=== PATIENT | female | born 1955 | race African-American/Black ===

== ENCOUNTER 2022-11-10 09:30 | Emergency (ER) | payer MEDICARE, OTHER ==
[~2022-11-10] VITALS: Ht 160 cm; Wt 69.0 kg
[2022-11-10 09:39] VITALS: TEMP 98.9
[2022-11-10] MEDS ORDERED: ALBUTEROL (0.083%) 2.5MG/3ML NEB HHN STA (10:32)
[2022-11-10] MEDS ORDERED: PREDNISONE 20MG TABLET PO STA (10:32)
[2022-11-10] MEDS ORDERED: IPRATROPIUM BROMIDE (0.02%) 0.5MG/2.5ML NEB HHN STA (10:32)
[2022-11-10] MEDS ORDERED: AMLODIPINE 10MG TABLET PO ONE (10:45)
[2022-11-10 11:00] VITALS: PULSE 60; RESP 20; O2SAT 95
[2022-11-10] MEDS ORDERED: ALBU05 NEB (12:51)
[2022-11-10] MEDS ORDERED: P20 MT (12:51)
[2022-11-10] MEDS ORDERED: ALBU6.7H3 INH (12:51)
[2022-11-10 13:18] VITALS: BP 184/79; PULSE 69; RESP 16
== END 2022-11-10 13:20 | disposition home or self-care (01) ==
LOC: ER 09:30
DX: J44.1 Chronic obstructive pulmonary disease with (acute) exacerbation (principal); I10 Essential (primary) hypertension; Z98.890 Other specified postprocedural states
CPT/HCPCS: 99285; 71045; 94644; J7512

== ENCOUNTER 2023-03-28 14:10 | Emergency (ER) | payer MEDICARE ==
[~2023-03-28] VITALS: Ht 165.1 cm; Wt 72.0 kg
[~2023-03-28 14:10] MED LIST: ALBU05 NEB; ALBU6.7H3 INH; P20 MT
[2023-03-28 14:29] VITALS: O2SAT 98
[2023-03-28 15:22] LABS: BASOPHILS % 0.7 % (0.0-2.0); EOSINOPHILS % 1.8 % (0.0-5.0); HEMATOCRIT. 40.9 % (36.0-48.0); HEMOGLOBIN. 13.6 g/dL (12.0-16.0); MEAN CORPUSCULAR HEMOGLOBIN 32.5 pg (28.0-32.0); MEAN CORPUSCULAR HGB CONC 33.3 g/dL (31.0-37.0); MEAN CORPUSCULAR VOLUME 97.6 fL (81.0-99.0); MEAN PLATELET VOLUME 6.9 fl (7.4-10.4); NEUTROPHILS % 69.5 % (40.0-76.0); PLATELET 257 x1000/uL (130-400); RED BLOOD CELL COUNT 4.19 mill/uL (4.2-5.4); RED CELL DISTRIBUTION WIDTH 14.7 % (11.6-14.6); WHITE BLOOD COUNT 7.8 x1000/uL (4.5-11.0)
[2023-03-28 16:21] LABS: ALANINE AMINOTRANSFERASE 13 IU/L (10-49); ALBUMIN 4.4 g/dL (3.2-4.8); ASPARTATE AMINOTRANSFERASE 25 IU/L (<34); BILIRUBIN TOTAL 0.8 mg/dL (0.1-1.0); CALCIUM 9.8 mg/dL (8.7-10.4); CARBON DIOXIDE 26 mEq/L (21-32); CHLORIDE 104 mEq/L (98-107); CREATININE 0.7 mg/dL (0.6-1.0); GLUCOSE 95 mg/dL (70-105); POTASSIUM 4.2 mEq/L (3.5-5.1); PROTEIN TOTAL 8.2 g/dL (6.0-8.3); SODIUM 138 mEq/L (136-145); TROPONIN I HIGH SENSITIVITY 5 ng/L (3.0-34); UREA NITROGEN BLOOD 7 mg/dL (9-23)
[2023-03-28 18:03] VITALS: BP 206/142; PULSE 116; RESP 20; TEMP 99.5
[2023-03-28] MEDS ORDERED: LEVO750T68 MT (18:14)
[2023-03-28] MEDS ORDERED: TRAM50TA3 MT (18:14)
[2023-03-28] MEDS ORDERED: P20 PO (18:14)
== END 2023-03-28 18:20 | disposition home or self-care (01) ==
LOC: ER 14:10
DX: J06.9 Acute upper respiratory infection, unspecified (principal); J45.909 Unspecified asthma, uncomplicated; I10 Essential (primary) hypertension
CPT/HCPCS: 36415; 71045; 80053; 84484; 85025; 93005; 99283; 99284

== ENCOUNTER 2023-06-10 14:59 | Emergency (ER) | payer SELFPAY ==
[~2023-06-10] VITALS: Ht 160 cm; Wt 72.0 kg
[~2023-06-10 14:59] MED LIST changes: +LEVO750T68 MT; +P20 PO; +TRAM50TA3 MT
[2023-06-10 15:08] VITALS: TEMP 98.6; O2SAT 97
[2023-06-10 15:53] LABS: BASOPHILS % 0.6 % (0.0-2.0); EOSINOPHILS % 2.3 % (0.0-5.0); HEMATOCRIT. 40.9 % (36.0-48.0); HEMOGLOBIN. 13.6 g/dL (12.0-16.0); MEAN CORPUSCULAR HEMOGLOBIN 32.4 pg (28.0-32.0); MEAN CORPUSCULAR HGB CONC 33.2 g/dL (31.0-37.0); MEAN CORPUSCULAR VOLUME 97.6 fL (81.0-99.0); MEAN PLATELET VOLUME 6.8 fl (7.4-10.4); MONOCYTES % 11.2 % (2.0-8.0); NEUTROPHILS % 50.9 % (40.0-76.0); PLATELET 229 x1000/uL (130-400); RED BLOOD CELL COUNT 4.19 mill/uL (4.2-5.4); RED CELL DISTRIBUTION WIDTH 14.4 % (11.6-14.6); WHITE BLOOD COUNT 9.4 x1000/uL (4.5-11.0)
[2023-06-10 16:07] LABS: ALANINE AMINOTRANSFERASE 10 IU/L (10-49); ALBUMIN 4.4 g/dL (3.2-4.8); ASPARTATE AMINOTRANSFERASE 20 IU/L (<34); BILIRUBIN TOTAL 0.6 mg/dL (0.1-1.0); CALCIUM 9.3 mg/dL (8.7-10.4); CARBON DIOXIDE 30 mEq/L (21-32); CHLORIDE 108 mEq/L (98-107); CREATININE 0.8 mg/dL (0.6-1.0); GLUCOSE 98 mg/dL (70-105); PROTEIN TOTAL 7.7 g/dL (6.0-8.3); SODIUM 142 mEq/L (136-145); UREA NITROGEN BLOOD 14 mg/dL (9-23)
[2023-06-10] MEDS ORDERED: CLONIDINE 0.2MG TABLET PO ONE (21:15)
[2023-06-10 21:24] LABS: TROPONIN I HIGH SENSITIVITY 7 ng/L (3.0-34)
[2023-06-10 22:00] VITALS: BP 171/86; PULSE 85; RESP 16
[2023-06-10] MEDS: KETOROLAC 30MG/ML VIAL IV STA (22:00)
[2023-06-10] MEDS: CLONIDINE 0.1MG TABLET PO NR (22:30)
[2023-06-10] MEDS: SODIUM CHLORIDE 0.9% 1,000 ML IV ONE (22:30)
[2023-06-10] MEDS ORDERED: IBUP-2028 MT (23:11)
[2023-06-11 00:55] LABS: CLARITY URINE CLEAR (CLEAR); COLOR URINE YELLOW (YELLOW); GLUCOSE URINE NEGATIVE (NEGATIVE); KETONES URINE NEGATIVE (NEGATIVE); LEUKOCYTE ESTERASE URINE NEGATIVE (NEGATIVE); NITRITE URINE NEGATIVE (NEGATIVE); OCCULT BLOOD URINE NEGATIVE (NEGATIVE); PROTEIN URINE NEGATIVE (NEGATIVE); SPECIFIC GRAVITY URINE 1.012 (1.005-1.030); UROBILINOGEN URINE 0.2 E.U./dL (0.2-1.0)
== END 2023-06-10 21:10 | disposition home or self-care (01) ==
LOC: ER 14:59
DX: R51.9 Headache, unspecified (principal); M54.2 Cervicalgia; I10 Essential (primary) hypertension; J45.909 Unspecified asthma, uncomplicated; V89.2XXA Person injured in unspecified motor-vehicle accident, traffic, initial encounter; Y93.89 Activity, other specified; Y92.89 Other specified places as the place of occurrence of the external cause; Y99.8 Other external cause status
CPT/HCPCS: 80053; 81003; 85025; 84484; 36415; 70450; 72125; 93005; 96361; 96374; 99285; J1885; J7030; Z7610